=== PATIENT | male | born 1950 | race Caucasian/White ===

== ENCOUNTER 2016-12-03 13:57 | Inpatient (IN) | payer OTHER ==
[~2016-12-03] VITALS: Ht 185.4 cm; Wt 68.5 kg
[~2016-12-03 13:57] MED LIST: ABACAVIR300 MG PO; ADDERALL 20 MG20 M1 PO; ALPRAZOLAM2 MG PO; ASPIRIN81 M2 PO; B12INJ IM; DEPO-TESTO200 MG/1 M IM; EPZICOM1 TA1 PO; FENOFIBRATE200 MG PO; HYDROCODON-ACE1 EACH; IBUPROFEN 800800 M1 PO; KALETRA 200-501 EACH PO; LIPITOR10 MG PO; LISINOPRIL-HCT1 EACH PO; PERCOCET 10-321 EACH PO; PLAVIX 75 MG TA75 M1 PO; PRINZIDE 10-121 EACH PO; SOMATROPIN SUBQ; TIVICAY50 MG PO; VALIUM10 MG PO; VIBRYD PO; VIIBRYD40 MG PO; VIRAMUNE XR400 MG PO; XANAX XR2 MG PO; ZOLOFT100 MG PO; [UNRECOGNIZED DRUG - OTHER] PO; [UNRECOGNIZED DRUG - OTHER] SUBQ
[2016-12-03 16:05] VITALS: BP 128/69
[2016-12-03] MEDS ORDERED: VENTOLIN HFA INH8 GM INH (17:33)
[2016-12-03] MEDS ORDERED: FLEXERIL PO (17:34)
[2016-12-03] MEDS ORDERED: DESVENLAFAXINE50 M2 PO (17:35)
[2016-12-03] MEDS ORDERED: VALIUM5 MG PO (17:36)
[2016-12-03] MEDS ORDERED: TRIUMEQ TABLET1 EACH PO (17:37)
[2016-12-03] MEDS ORDERED: MARINOL10 MG PO (17:38)
[2016-12-03] MEDS ORDERED: NEURONTIN 300300 M1 PO (17:39)
[2016-12-03] MEDS ORDERED: JUBLIA4 ML TP (17:40)
[2016-12-03] MEDS ORDERED: ATIVAN1 MG PO (17:40)
[2016-12-03] MEDS ORDERED: ANADROL-5050 MG PO (17:41)
[2016-12-03] MEDS ORDERED: CARDIZEM CD120 MG PO (17:42)
[2016-12-03 19:20] LABS: HEMATOCRIT 46.3 % (42.0-52.0); HEMOGLOBIN 15.1 gm/dL (14.0-18.0); MCH 30.2 pg (26.0-34.0); MCHC 32.6 g/dL (28.0-37.0); MCV 92.6 fL (80.0-100.0); RDW 15.6 % (10.5-14.5); WBC 9.7 thou/uL (4.0-11.0)
[2016-12-03 19:29] LABS: CALCIUM 8.1 mg/dL (8.5-10.1); CREATININE 1.3 mg/dL (0.7-1.3); POTASSIUM 3.9 mmol/L (3.5-5.1)
[2016-12-03 19:34] LABS: ALBUMIN 2.2 g/dL (3.4-5.0); TOTAL BILIRUBIN 0.1 mg/dL (<0.1-1.0); TOTAL PROTEIN 5.7 g/dL (6.4-8.2)
[2016-12-03 20:15] VITALS: BP 118/79
[2016-12-04 04:25] VITALS: BP 110/62
[2016-12-04 08:00] VITALS: BP 125/83
== END 2016-12-04 11:08 | disposition left against medical advice (07) | DRG 392 ==
LOC: 3N 13:57
PROVIDERS: Internal Medicine Infectious Disease
DX: R19.7 Diarrhea, unspecified (principal); E86.0 Dehydration; K64.9 Unspecified hemorrhoids; M54.9 Dorsalgia, unspecified; G89.29 Other chronic pain; J44.9 Chronic obstructive pulmonary disease, unspecified; I10 Essential (primary) hypertension; I48.0 Paroxysmal atrial fibrillation; E78.5 Hyperlipidemia, unspecified; F98.8 Other specified behavioral and emotional disorders with onset usually occurring in childhood and adolescence; F41.9 Anxiety disorder, unspecified; F32.9 Major depressive disorder, single episode, unspecified; G47.00 Insomnia, unspecified; F17.210 Nicotine dependence, cigarettes, uncomplicated
CPT/HCPCS: 10795